=== PATIENT | female | born 1975 | race Caucasian/White ===

== ENCOUNTER → 2022-10-22 | Outpatient (CLI) | payer OTHER ==
[~2022-10-22] MED LIST: Catapres0.2 MG PO; DICY20 PO; Naprosyn500 MG PO; PROM25 PO
[2022-10-22 13:09] LABS: Bun/Creatinine Ratio 29.7 (12.0-20.0); Calcium, Blood 9.7 mg/dL (8.5-10.1); Creatinine, Blood 0.71 mg/dL (0.40-1.00); Potassium, Blood 3.9 mmol/L (3.5-5.5)
== END | disposition home or self-care (01) ==
LOC: LAB SHORT 10:26
PROVIDERS: Internal Medicine Cardiovascular Disease
DX: D86.9 Sarcoidosis, unspecified (principal); I10 Essential (primary) hypertension; I42.9 Cardiomyopathy, unspecified; I11.9 Hypertensive heart disease without heart failure
CPT/HCPCS: 36415; 80048